=== PATIENT | male | born 1945 | race Caucasian/White ===

== ENCOUNTER 2024-03-26 11:50 | Emergency (ER) | payer MEDICARE, OTHER, SELFPAY ==
[2024-03-26 12:12] VITALS: BP 115/75
--- NOTE | 2024-03-26 13:06 | ED.GENMED ---
History of Present Illness
General
Chief Complaint: Head Injury
Source: patient
Exam Limitations: none
Time Seen by Provider: 03/26/24 12:39
Nursing documentation reviewed up to this point in time: agreed with
History of Present Illness
History of Present Illness:
78-year-old male presents after a fall with head strike greater than 48 hours ago slipped on some ice struck his head was dazed for about an hour and confused, felt better today still feels a bit off, though he drove year and is reading a book, no
blood thinners social drinker of alcohol not to excess non-smoker has some chronic back issues she has had 9 prior surgeries, no new weakness or numbness,
Past History
Past History
ED Past Medical History: GERD and Hypercholesterolemia
ED Past Surgical History: Orthopedic (Back surgery, ) and Urological (Prostate Surgery)
Social History
Tobacco: Smoker (Cigar occasionally)
Alcohol: Occasional
Drug: None
Personal:
Living: with family
Employment: Retired
Family History
Family History: Unable to obtain
Review of Systems
Review of Systems
All Other Systems: Not applicable
Constitutional: Denies fever or fatigue
EENT: Reports no symptoms
Respiratory: Reports no symptoms
Cardiac: Reports no symptoms
ABD/GI: Reports no symptoms
Neurological: Reports dizzy
Phy Exam
Physical Exam
Physical Exam:
Physical Exam
General: no apparent distress, not acutely ill
Neck: No posterior neck pain no tongue
Heart: s1/s2 regular rate and rhythm, no murmur. equal radial pulses.
Lungs: no acute respiratory distress. clear bilaterally
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
Skin: no rash
Psychiatric: well kept. interactive and cooperative
Extremities: no edema.
Course
Orders/Labs/Results
Orders:
Orders
03/26/24 12:42
CT Cervical Spine W/o Iv Contr Urgent
Comment:
Reason For Exam: fall
CT Head W/o Iv Contrast Urgent
Comment:
Reason For Exam: fall
Vital Signs
Initial and Last Documented VS:
Initial Vital Signs
Temp Pulse Resp BP Pulse Ox
98 F 82 16 115/75 99
03/26/24 12:12 03/26/24 12:12 03/26/24 12:12 03/26/24 12:12 03/26/24 12:12
Last Documented Vital Signs
Temp Pulse Resp BP Pulse Ox
98 F 82 16 115/75 99
03/26/24 12:12 03/26/24 12:12 03/26/24 12:12 03/26/24 12:12 03/26/24 12:12
MDM/Problems Addressed
Differential Diagnosis Includes:
Close head injury concussion C-spine injury intracerebral hemorrhage
MDM/Problems Addressed:
Fall with head
Chronic conditions affecting care: HTN
Acute Exacerbation and/or Progression of Chronic Illness: HTN
*Radiology
Radiology exam reviewed: radiology read reviewed
*Pulse Oximetry
Patient hypoxic: no
*Critical Care Note
Total Time (30-74mins, 75-104mins- exclusive of procedures): Not Applicable
Update Note
Update Note:
Update CT reports noted
ED Attending Note
-
Portions of this chart may have been created with voice recognition software.� Occasional wrong word or��sound alike� substitutions may have occurred due to the inherent limitations of voice recognition software.
Discharge Plan
Departure
Patient Disposition: Home (Routine Discharge)
Date of Disposition: 03/26/24
Time of Disposition: 14:57
Patient with high blood pressure during this ER visit?: No
Condition: Good
Discharge Problem:
Concussion
Instructions: Concussion, Adult (DC), Minor Head Injury (DC)
Prescriptions:
No Action
cephalexin 500 mg capsule
500 mg PO BID 7 Days Qty: 13 0RF
magnesium citrate Solution
300 ml PO ONCE Qty: 296 0RF
bisacodyl [Dulcolax (bisacodyl)] 10 mg suppository
10 mg [place] ONCE Qty: 12 0RF
Referrals:
UNKNOWN - PT DOES,NOT KNOW [Family Provider] -
Activity Restrictions/Additional Instructions:
Be careful while walking on icy ground, Tylenol or ibuprofen for headache
Interventions
Interventions:
*Risk Screen - Suicide Last Done: 03/26/24 12:17
*Neglect/Abuse Screening Last Done: 03/26/24 12:17
Discharge Date and Time
Print Language: ANGUILLAN
[2024-03-26 15:07] VITALS: BP 136/81
== END 2024-03-26 15:15 | disposition home or self-care (01) ==
LOC: EMR 11:50
PROVIDERS: EMERGENCY PHYSICIAN Emergency Medicine
DX: S06.0XAA Concussion with loss of consciousness status unknown, initial encounter (principal); W00.0XXA Fall on same level due to ice and snow, initial encounter; K21.9 Gastro-esophageal reflux disease without esophagitis; E78.00 Pure hypercholesterolemia, unspecified; F17.290 Nicotine dependence, other tobacco product, uncomplicated
CPT/HCPCS: 99284; 70450; 72125

== ENCOUNTER 2024-07-07 13:44 | Emergency (ER) | payer MEDICARE, OTHER, SELFPAY ==
[2024-07-07 13:52] VITALS: BP 146/93
[2024-07-07 14:26] LABS: % Basophils 0.3 % (0-2); % Eosinophils 0.2 % (0-6); % Immature Granulocytes 0.5 % (0-0.5); % Lymphocytes 12.7 % (20.5-51.1); % Monocytes 1.7 % (1.7-9.3); % Neutrophils 84.6 % (42.2-75.2); Absolute Lymphocytes 1.1 10^3/uL (1.2-3.4); Absolute Monocytes 0.2 10^3/uL (0.1-0.6); Absolute Neutrophils 7.3 10^3/uL (1.4-6.5); Hematocrit 42.4 % (39.0-52.0); Hemoglobin 13.7 g/dL (13.0-18.0); Mean Corp Hgb Conc. 32.3 g/dL (33.0-37.0); Mean Corpuscular Hgb 30.6 pg (27.0-31.0); Mean Corpuscular Volume 94.9 fL (80.0-94.0); Mean Platelet Volume 9.2 fL (7.4-10.4); Nucleated Red Blood Cells % 0 % (-); Platelet Count 295 10^3/uL (130-400); Red Blood Cell Count 4.47 10^6/uL (4.70-6.10); Red Cell Dist. Width 12.1 % (11.5-14.5); White Blood Cell Count 8.7 10^3/uL (4.8-10.8)
[2024-07-07 14:35] LABS: ALT (SGPT) 22 U/L (0-50); AST (SGOT) 24 U/L (17-59); Albumin 4.3 g/dl (3.5-5.0); Alkaline Phosphatase 81 U/L (38-126); Blood Urea Nitrogen 20 mg/dl (9-20); Calcium 9.4 mg/dl (8.4-10.2); Carbon Dioxide 32 mmol/L (22-30); Chloride 105 mmol/L (98-107); Glucose 137 mg/dl (70-99); Potassium 5.6 mmol/L (3.5-5.1); Sodium 142 mmol/L (135-145); Total Bilirubin 0.6 mg/dl (0.2-1.3); Total Protein 6.9 g/dl (6.3-8.2); eGFR > 60.00
--- NOTE | 2024-07-07 15:35 | ED.GENMED ---
History of Present Illness
General
Chief Complaint: Dizziness
Source: patient
Exam Limitations: none
Time Seen by Provider: 07/07/24 15:25
Nursing documentation reviewed up to this point in time: agreed with
History of Present Illness
History of Present Illness:
Patient is a 78-year-old male who presents to the ER for evaluation. Patient reports he was seen here and diagnosed with a concussion March. He reports since then he has had some' concussion problems,' such as difficulty focusing(at
times when he reads) intermittent dizziness. He reports he reads a lot he reads a lot of books and also reads the newspaper and reads on an iPad an is not sure if this is making his symptoms worse. He has lived in the area for 10 years however has
a family doctor in [place] and he does see him once a year. He wanted to see a neurologist for his symptoms but because he was not recommended to do so by physician the local neurologist office but not see him or schedule an appointment for him.
This is what prompted patient to come to the ER.
He is not on blood thinners.
He denies any headache presently. He denies any nausea vomiting. He is on blood thinners.
Past History
Past History
ED Past Medical History: GERD and Hypercholesterolemia
ED Past Surgical History: Orthopedic (Back surgery, ) and Urological (Prostate Surgery)
Social History
Tobacco: Smoker (Cigar occasionally)
Alcohol: Occasional
Drug: None
Personal:
Living: with family
Employment: Retired
Family History
Family History: Unable to obtain
Review of Systems
Review of Systems
Allergies reviewed?: Yes
All Other Systems: ROS reviewed and negative except as documented in HPI and ROS
Constitutional: Reports no symptoms; Denies fever, fatigue or chills
Respiratory: Reports no symptoms
Cardiac: Reports no symptoms
ABD/GI: Reports no symptoms
: Reports no symptoms
Musculoskeletal: Reports no symptoms
Neurological: Reports no symptoms
Psychiatric: Reports no symptoms
Phy Exam
General Physical Exam
General Presentation: no apparent distress
General age: appears stated age
General Skin: warm and dry
General Habitus: normal
General Mental: alert
General Hydration: appears well hydrated
ENT Exam
ENT Exam: EOMI
Eye Exam
Eye Exam: PERRL and EOMI
Eye Exam General: PERRL: bilateral and EOM intact: bilateral
Pupil Exam: Bilateral: round and reactive
Cardiovascular Exam
Cardiovascular Exam: regular rate/rhythm, no murmur and normal peripheral pulses
Pulmonary Exam
Pulmonary Exam: lungs clear and no respiratory distress
Neurological Exam
Neurological Exam: alert and oriented x3
Musculoskeletal Exam
Musculoskeletal Exam: full ROM
Skin Exam
Skin Exam: normal color and warm/dry
Psychiatric Exam
Psychiatric Exam: normal mood/affect
Course
Orders/Labs/Results
Orders:
Orders
07/07/24 13:55
Electrocardiogram (*1) Urgent
Reason for Study: Vertigo / Dizzy
EKG- Treatment ONCE
07/07/24 14:06
Complete Blood Count/With Diff Urgent
Comprehensive Metabolic Panel Urgent
07/07/24 16:17
Potassium Urgent
Abnormal Lab Results
07/07/24
14:06
RBC 4.47 L 10^6/uL
(4.70-6.10)
MCV 94.9 H fL
(80.0-94.0)
MCHC 32.3 L g/dL
(33.0-37.0)
Absolute Neuts (auto) 7.3 H 10^3/uL
(1.4-6.5)
Absolute Lymphs (auto) 1.1 L 10^3/uL
(1.2-3.4)
Neutrophils % 84.6 H %
(42.2-75.2)
Lymphocytes % 12.7 L %
(20.5-51.1)
Potassium 5.6 H mmol/L
(3.5-5.1)
Carbon Dioxide 32 H mmol/L
(22-30)
Glucose 137 H mg/dl
(70-99)
07/07/24 14:06
07/07/24 16:17
Vital Signs
Initial and Last Documented VS:
Initial Vital Signs
Temp Pulse Resp BP Pulse Ox
98.0 F 84 16 146/93 98
07/07/24 13:52 07/07/24 13:52 07/07/24 13:52 07/07/24 13:52 07/07/24 13:52
Last Documented Vital Signs
Temp Pulse Resp BP Pulse Ox
98.0 F 84 16 126/78 98
07/07/24 13:52 07/07/24 13:52 07/07/24 13:52 07/07/24 16:34 07/07/24 13:52
MDM/Problems Addressed
Differential Diagnosis Includes:
not limited to post concussion syndrome
MDM/Problems Addressed:
Patient is a 78-year-old male who was diagnosed with a concussion in March here in the ER and since then has felt foggy and a little dizzy. He does not have a family doctor in the area as family doctors in [place] and therefore he has not been
able to see a neurologist. He presents here for' a referral' to neurology for symptoms. He presents awake alert no acute distress he is reading a book he has a normal neurological exam. Patient has no nystagmus on exam he has a normal
neurological exam he is nontoxic-appearing labs were done prior to my exam and initial potassium was 5.6 however within normal renal function I did repeat the potassium and it is normal at 4.2 which makes more sense.
Nothing acute needs to be done here in the ER patient again is well-appearing with a neurological exam. He is steady with an ambulatory gait. no no Will DC with outpatient neurology for possible postconcussion syndrome symptoms.
*Critical Care Note
Total Time (30-74mins, 75-104mins- exclusive of procedures): Not Applicable
Data Reviewed
Review of Other/Old Records Reveals: Radiology Studies and Other (Prior ED visit)
ED Attending Note
-
Portions of this chart may have been created with voice recognition software.� Occasional wrong word or��sound alike� substitutions may have occurred due to the inherent limitations of voice recognition software.
Discharge Plan
Departure
Patient Disposition: Home (Routine Discharge)
Date of Disposition: 07/07/24
Time of Disposition: 16:53
Patient with high blood pressure during this ER visit?: Yes
Condition: Fair
Covid-19: Not Applicable
Discharge Problem:
Dizziness
Instructions: Dizziness, Nonvertigo, (DC), BLOOD PRESSURE
Prescriptions:
No Action
cephalexin 500 mg capsule
500 mg PO BID 7 Days Qty: 13 0RF
magnesium citrate Solution
300 ml PO ONCE Qty: 296 0RF
bisacodyl [Dulcolax (bisacodyl)] 10 mg suppository
10 mg [place] ONCE Qty: 12 0RF
Referrals:
Herminio Hastings MD [Active] -
PRIVATE,PHYSICIAN [Family Provider] -
Activity Restrictions/Additional Instructions:
Follow-up with neurology. Please call to make an appointment soon as possible return if any worsening of symptoms.
Interventions
Interventions:
ED- Neurological Assessment Last Done: 07/07/24 14:59
ED- Cardiac Assessment Last Done: 07/07/24 14:59
ED Swallowing Screen Last Done: 07/07/24 14:59
Discharge Date and Time
Print Language: SINHALA
[2024-07-07 16:34] VITALS: BP 126/78
[2024-07-07 16:35] LABS: Potassium 4.2 mmol/L (3.5-5.1)
== END 2024-07-07 17:41 | disposition home or self-care (01) ==
LOC: EMR 13:44
PROVIDERS: Emergency Medicine; Nurse Practitioner; EMERGENCY PHYSICIAN Emergency Medicine
DX: R42 Dizziness and giddiness (principal); E78.00 Pure hypercholesterolemia, unspecified; K21.9 Gastro-esophageal reflux disease without esophagitis; F17.290 Nicotine dependence, other tobacco product, uncomplicated; Z79.01 Long term (current) use of anticoagulants
CPT/HCPCS: 99284; 80053; 84132; 85025; 93005

== ENCOUNTER 2025-02-12 08:50 | Emergency (ER) | payer MEDICARE, OTHER, SELFPAY ==
[2025-02-12 08:54] VITALS: BP 120/80
[2025-02-12 09:07] VITALS: BMI 23.1
--- NOTE | 2025-02-12 09:24 | ED.GENMED ---
History of Present Illness
General
Chief Complaint: Swelling
Source: patient
Exam Limitations: none
Time Seen by Provider: 02/12/25 09:07
History of Present Illness
History of Present Illness:
79yoM with history of hyperlipidemia, GERD, and multiple prior back surgeries presenting for evaluation of bilateral leg swelling. Patient recently traveled to [place]. He was playing golf and his shorts for several days and came in contact with
bushes. He started to notice some skin irritation wall on the trip which is persistent. He also reports some swelling near the ankles bilaterally. Symptoms have not improved since he returned home 3 days ago. He was worried because there were
rattle snakes in the bushes and wanted to be evaluated. He is otherwise feeling well and denies any fevers, chills, body aches, chest pain, shortness of breath, weight gain, orthopnea.
Past History
Past History
ED Past Medical History: GERD and Hypercholesterolemia
ED Past Surgical History: Orthopedic (Back surgery, ) and Urological (Prostate Surgery)
Social History
Tobacco: Smoker (Cigar occasionally)
Alcohol: Occasional
Drug: None
Personal:
Living: with family
Employment: Retired
Family History
Family History: Unable to obtain
Phy Exam
General Physical Exam
General Presentation: well appearing and no apparent distress
General Skin: warm and dry
General Habitus: normal
General Mental: alert
Cardiovascular Exam
Cardiovascular Exam: regular rate/rhythm
Pulmonary Exam
Pulmonary Exam: lungs clear, no respiratory distress, no rales, no crackles, no rhonchi and no wheezing
Neurological Exam
Neurological Exam: alert
Hollie Coma Scale
Eye Opening: Spontaneous
Verbal Response: Oriented
Motor Response: Obeys Commands
GCS Total Score: 15
Musculoskeletal Exam
Musculoskeletal Exam: other (Mild skin irritation with scattered abrasions noted to bilateral lower extremities. Trace pitting edema noted in ankles. 2+ DP and PT pulses bilaterally. )
Skin Exam
Skin Exam: normal color and warm/dry
Psychiatric Exam
Psychiatric Exam: normal mood/affect
Scores
Heart Failure Risk
Heart Failure Risk Score: Not Applicable
Course
Orders/Labs/Results
Orders:
Orders
02/12/25 09:22
Venous Doppler Lwr Ext Bilat [US Periph Venous LOWER Ext Law] Urgent
Comment:
Reason For Exam: bilateral ankle swelling, recent travel
02/12/25 09:31
Complete Blood Count/With Diff Urgent
Comprehensive Metabolic Panel Urgent
Abnormal Lab Results
02/12/25
09:31
RBC 4.07 L 10^6/uL
(4.70-6.10)
Hgb 12.4 L g/dL
(13.0-18.0)
Hct 37.9 L %
(39.0-52.0)
MCHC 32.7 L g/dL
(33.0-37.0)
Absolute Lymphs (auto) 1.1 L 10^3/uL
(1.2-3.4)
Immature Gran % 0.6 H %
(0-0.5)
Lymphocytes % 16.2 L %
(20.5-51.1)
Glucose 108 H mg/dl
(70-99)
02/12/25 09:31
02/12/25 09:31
Vital Signs
Initial and Last Documented VS:
Initial Vital Signs
Temp Pulse Resp BP Pulse Ox
98.5 F 88 18 120/80 98
02/12/25 08:54 02/12/25 08:54 02/12/25 08:54 02/12/25 08:54 02/12/25 08:54
Last Documented Vital Signs
Temp Pulse Resp BP Pulse Ox
98.5 F 88 18 99/68 97
02/12/25 08:54 02/12/25 08:54 02/12/25 08:54 02/12/25 10:11 02/12/25 10:30
MDM/Problems Addressed
Differential Diagnosis Includes:
79yoM here with bilateral leg redness. Recent trip to [place] and he was playing golf near [place]. Worried about rattle snakes. VSS. He is extremely well appearing on exam. There is mild skin irritation to bilateral lower extremities with trace
pitting edema to ankles. Bilateral lower extremities are neurovascularly intact with palpable pulses. Differential diagnosis includes: contact dermatitis, abrasions, no clinical evidence of cellulitis, less likely DVT, no other symptoms to suggest
CHF
Initial ED plan: Check CBC, CMP, and bilateral venous duplex.
*Pulse Oximetry
SaO2: 98
Oxygen Mode of Delivery: Room air
Patient hypoxic: no
*Critical Care Note
Total Time (30-74mins, 75-104mins- exclusive of procedures): Not Applicable
Update Note
Update Note:
Labs unremarkable including normal white count and renal function. Ultrasound is negative for DVT bilaterally. Patient stable for discharge. I suspect his skin irritation will gradually improve with time. He was advised to follow-up with PCP and
ER precautions reviewed. Patient in agreement with plan and he is eager to be discharged.
ED Attending Note
-
Portions of this chart may have been created with voice recognition software.� Occasional wrong word or��sound alike� substitutions may have occurred due to the inherent limitations of voice recognition software.
Discharge Plan
Departure
Patient Disposition: Home (Routine Discharge)
Date of Disposition: 02/12/25
Time of Disposition: 10:47
Patient with high blood pressure during this ER visit?: No
Discharge Problem:
Skin irritation
Instructions: Skin rash - ED (DC)
Prescriptions:
No Action
ezetimibe [Zetia] 10 mg Tablet
10 mg PO DAILY
mirtazapine 7.5 mg Tablet
7.5 mg PO DAILY
atorvastatin
1 tab PO DAILY
famotidine
2 tab PO DAILY
hydrocodone-acetaminophen
1 tab PO PRN PRN (Reason: pain)
omeprazole
1 tab PO DAILY
Referrals:
UNKNOWN - PT DOES,NOT KNOW [Family Provider]
Activity Restrictions/Additional Instructions:
Your blood work and ultrasound were reassuring today. I suspect your skin irritation should start to improve over the next few days.
Please follow-up with your family doctor. Return to the ER with any new or worsening symptoms.
Interventions
Interventions:
*Risk Screen - Suicide Last Done: 02/12/25 08:54
*General Assessment Last Done: 02/12/25 08:54
*Neglect/Abuse Screening Last Done: 02/12/25 08:54
*ED- Fall Risk Assessment Last Done: 02/12/25 08:58
*ED COVID-19 Vaccine History Last Done: 02/12/25 09:13
*ED Influenza Vaccine History Last Done: 02/12/25 09:13
*Nursing Disposition Last Done: 02/12/25 11:02
ED- Cardiac Assessment Last Done: 02/12/25 09:13
ED- Pulmonary Assessment Last Done: 02/12/25 09:13
ED-Skin Assessment Last Done: 02/12/25 09:13
Discharge Date and Time
Discharge Date/Time: 02/12/25 11:02
Print Language: HUNGARIAN
[2025-02-12 09:40] LABS: Hematocrit 37.9 % (39.0-52.0); Hemoglobin 12.4 g/dL (13.0-18.0); Mean Corp Hgb Conc. 32.7 g/dL (33.0-37.0); Mean Corpuscular Volume 93.1 fL (80.0-94.0); Nucleated Red Blood Cells % 0 % (-); Platelet Count 255 10^3/uL (130-400); Red Cell Dist. Width 12.6 % (11.5-14.5)
[2025-02-12 10:03] LABS: ALT (SGPT) 24 U/L (0-50); AST (SGOT) 27 U/L (17-59); Albumin 3.9 g/dl (3.5-5.0); Alkaline Phosphatase 79 U/L (38-126); Blood Urea Nitrogen 18 mg/dl (9-20); Calcium 8.7 mg/dl (8.4-10.2); Carbon Dioxide 29 mmol/L (22-30); Chloride 107 mmol/L (98-107); Estimated Creatinine Clearance 102 ml/min; Glucose 108 mg/dl (70-99); Potassium 4.0 mmol/L (3.5-5.1); Sodium 139 mmol/L (135-145); Total Protein 6.6 g/dl (6.3-8.2); eGFR > 60.00
[2025-02-12 10:11] VITALS: BP 99/68
== END 2025-02-12 11:02 | disposition home or self-care (01) ==
LOC: EMR 08:50
PROVIDERS: Physician Assistant; EMERGENCY PHYSICIAN Emergency Medicine
DX: L98.8 Other specified disorders of the skin and subcutaneous tissue (principal); R22.43 Localized swelling, mass and lump, lower limb, bilateral; E78.00 Pure hypercholesterolemia, unspecified; K21.9 Gastro-esophageal reflux disease without esophagitis; F17.290 Nicotine dependence, other tobacco product, uncomplicated
CPT/HCPCS: 99284; 80053; 85025; 93970